=== PATIENT | female | born 1965 | race Caucasian/White ===

== ENCOUNTER 2020-07-17 19:09 | Emergency (ER) | payer BC ==
[2020-07-17 19:26] VITALS: BP 122/74; PULSE 104
--- NOTE | 2020-07-17 19:41 | EDM.PDOC ---
ED HPI GENERAL MEDICAL PROBLEM - General Chief Complaint: Respiratory Problem Stated Complaint: RUNNY NOSE, YELLOW DRAINAGE, COUGH Time Seen by Provider: 07/17/20 19:37 Source of Information: Reports: Patient, RN, RN Notes Reviewed History Limitations: Reports: No Limitations - History of Present Illness INITIAL COMMENTS - FREE TEXT/NARRATIVE: Patient presents to ER with complaint of sinus congestion, yellow/green drainage from the nose, cough, sore throat. Patient states symptoms began yesterday. Denies fever chills, nausea or vomiting, diarrhea, chest pains or shortness of breath. Patient states she does have breast cancer and is currently taking chemo. 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 Throat Pain Score (Numeric/FACES): 4 - Related Data Allergies Allergy/AdvReac Type Severity Reaction Status Date / Time Sulfa (Sulfonamide Allergy Unknown Diaphoresis Verified 07/17/20 19:26 Antibiotics) Home Meds: Home Meds ALPRAZolam [Alprazolam] 0.5 mg PO ASDIRECTED 07/17/20 [History] Ondansetron [Zofran] 8 mg PO ASDIRECTED PRN 07/17/20 [History] Prochlorperazine Maleate [Compazine] 10 mg PO ASDIRECTED PRN 07/17/20 [History] Venlafaxine HCl [Venlafaxine ER] 150 mg PO DAILY 07/17/20 [History] Past Medical History - Past Health History Medical/Surgical History: Denies Medical/Surgical History Social & Family History - Family History Family Medical History: No Pertinent Family History - Caffeine Use Caffeine Use: Reports: Coffee, Soda - Living Situation & Occupation Living situation: Reports: with Family Occupation: Employed ED ROS GENERAL - Review of Systems Review Of Systems: Comprehensive ROS is negative, except as noted in HPI. ED EXAM, GENERAL - Physical Exam Exam: See Below Exam Limited By: No Limitations General Appearance: Alert, WD/WN, No Apparent Distress Eye Exam: Bilateral Eye: EOMI, Normal Inspection Ears: Normal External Exam, Hearing Grossly Normal Nose: Normal Inspection Throat/Mouth: Normal Inspection, Normal Voice, No Airway Compromise, Other (mild erythema of oropharynx) Head: Atraumatic, Normocephalic Neck: Normal Inspection, Supple, Non-Tender, Full Range of Motion Respiratory/Chest: No Respiratory Distress, No Accessory Muscle Use, Chest Non- Tender, Decreased Breath Sounds Cardiovascular: Normal Peripheral Pulses, Regular Rate, Rhythm, No Edema, No Gallop, No JVD, No Murmur, No Rub Peripheral Pulses: 2+: Radial (L), Radial (R) GI/Abdominal: Normal Bowel Sounds, Soft, Non-Tender (Female) Exam: Deferred Rectal (Female) Exam: Deferred Back Exam: Normal Inspection, Full Range of Motion, NT Extremities: Normal Inspection, Normal Range of Motion, Non-Tender, Normal Capillary Refill, No Pedal Edema Neurological: Alert, Oriented, CN II-XII Intact, Normal Cognition, Normal Gait, Normal Reflexes, No Motor/Sensory Deficits Psychiatric: Normal Affect, Normal Mood Skin Exam: Warm, Dry, Intact, Normal Color, No Rash Lymphatic: No Adenopathy Course - Vital Signs Last Recorded V/S: Last Vital Signs Temp 97.8 F 07/17/20 19:18 Pulse 104 H 07/17/20 19:18 Resp 16 07/17/20 19:18 BP 122/74 07/17/20 19:18 Pulse Ox 100 07/17/20 19:18 - Orders/Labs/Meds Orders: Active Orders 24 hr Category Date Time Status CULTURE STREP A CONFIRMATION [] Stat Lab 07/17/20 19:40 Results STREP SCRN A RAPID W CULT CONF [] Stat Lab 07/17/20 19:40 Results Labs: Laboratory Tests 07/17/20 Range/Units 19:40 SARS CoV-2 RNA Rapid TREVON Negative (NEGATIVE) Departure - Departure Time of Disposition: 20:24 Disposition: Home, Self-Care 01 Condition: Good Clinical Impression: Upper respiratory infection Qualifiers: URI type: unspecified viral URI Qualified Code(s): J06.9 - Acute upper respiratory infection, unspecified - Discharge Information *PRESCRIPTION DRUG MONITORING PROGRAM REVIEWED*: No *COPY OF PRESCRIPTION DRUG MONITORING REPORT IN PATIENT RANDELL: No Instructions: Viral Respiratory Infection, [id number] Forms: ED Department Discharge Additional Instructions: Push fluids, water and gatorade/powerade May use Tylenol and/or Ibuprofen as directed for pain/fever Try to stay away from people, always wear a mask If you begin to have fever/chills/body aches, begin the antibiotics RX: Azithromycin Sepsis Event Note (ED) - Evaluation Sepsis Screening Result: No Definite Risk - Focused Exam Vital Signs: Vital Signs Temp Pulse Resp BP Pulse Ox 07/17/20 19:18 97.8 F 104 H 16 122/74 100 - My Orders Last 24 Hours: My Active Orders 07/17/20 19:40 CULTURE STREP A CONFIRMATION [RM] Stat STREP SCRN A RAPID W CULT CONF [] Stat - Assessment/Plan Last 24 Hours: My Active Orders 07/17/20 19:40 CULTURE STREP A CONFIRMATION [RM] Stat STREP SCRN A RAPID W CULT CONF [] Stat
== END 2020-07-17 20:30 | disposition home or self-care (01) ==
LOC: DL.ED 19:09
DX: J06.9 Acute upper respiratory infection, unspecified (principal); C50.919 Malignant neoplasm of unspecified site of unspecified female breast; Z20.828 Contact with and (suspected) exposure to other viral communicable diseases; Z88.2 Allergy status to sulfonamides
CPT/HCPCS: 87081; 87430; 99283; U0002

== ENCOUNTER 2020-10-29 22:41 | Emergency (ER) | payer BC ==
[2020-10-29 22:53] VITALS: BP 129/72; PULSE 100
--- NOTE | 2020-10-29 23:03 | EDM.PDOC ---
ED HPI GENERAL MEDICAL PROBLEM - General Chief Complaint: ENT Problem Stated Complaint: TROUBLE SWALLOWING SORE THROAT Time Seen by Provider: 10/29/20 22:50 Source of Information: Reports: Patient History Limitations: Reports: No Limitations - History of Present Illness INITIAL COMMENTS - FREE TEXT/NARRATIVE: This 55 yo female patient reports to the ED due to having a hard to swallowing. The patient reports her symptoms started yesterday. The patient reports increased difficulties swallowing solid foods, but liquids have been fine. The patient is currently under radiation treatment for breast cancer through Oncology in [facility] with her most recent radiation treatment being this morning. The patient denies any shortness of breath, chest pain, nausea/vomiting or diarrhea. Onset Date: 10/28/20 Duration: Constant, Getting Worse Location: Reports: Other Quality: Reports: Other Severity: Moderate Improves with: Reports: None Worsens with: Reports: None Context: Reports: Other Associated Symptoms: Reports: No Other Symptoms - Related Data Allergies Allergy/AdvReac Type Severity Reaction Status Date / Time Sulfa (Sulfonamide Allergy Unknown Diaphoresis Verified 10/29/20 22:55 Antibiotics) Home Meds: Home Meds ALPRAZolam [Alprazolam] 0.5 mg PO ASDIRECTED 07/17/20 [History] Ondansetron [Zofran] 8 mg PO ASDIRECTED PRN 07/17/20 [History] Prochlorperazine Maleate [Compazine] 10 mg PO ASDIRECTED PRN 07/17/20 [History] Venlafaxine HCl [Venlafaxine ER] 150 mg PO DAILY 07/17/20 [History] Gabapentin [Neurontin] 100 mg PO BID 10/29/20 [History] Past Medical History - Past Health History Medical/Surgical History: Denies Medical/Surgical History Respiratory History: Reports: Asthma 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 side. Social & Family History - Family History Family Medical History: No Pertinent Family History - Tobacco Use Tobacco Use Status *Q: Never Tobacco User Years of Tobacco use: 30 Packs/Tins Daily: 0.4 - Caffeine Use Caffeine Use: Reports: None - Recreational Drug Use Recreational Drug Use: No - Living Situation & Occupation Living situation: Reports: with Family Occupation: Employed ED ROS ENT - Review of Systems Review Of Systems: Comprehensive ROS is negative, except as noted in HPI. ED EXAM, ENT - Physical Exam Exam: See Below Exam Limited By: No Limitations General Appearance: Alert, WD/WN, Mild Distress Eye Exam: Bilateral Eye: EOMI, Normal Inspection, PERRL Ears: Normal External Exam, Normal Canal, Hearing Grossly Normal, Normal TMs Nose: Normal Inspection, Normal Mucousa, No Blood Mouth/Throat: Normal Inspection, Normal Gums, Normal Lips, Normal Oropharynx, Normal Teeth Head: Atraumatic, Normocephalic Neck: Normal Inspection, Supple, Non-Tender, Full Range of Motion Cardiovascular: Normal Peripheral Pulses, Regular Rate, Rhythm, No Edema, No Gallop, No JVD, No Murmur, No Rub GI/Abdominal: Normal Bowel Sounds, Soft, Non-Tender, No Organomegaly, No Distention, No Abnormal Bruit, No Mass (Female) Exam: Deferred Rectal (Female) Exam: Deferred Back: Normal Inspection, Full Range of Motion Extremities: Normal Inspection, Normal Range of Motion, Non-Tender, No Pedal Edema, Normal Capillary Refill Neurological: Alert, Oriented, CN II-XII Intact, Normal Cognition, Normal Gait, Normal Reflexes, No Motor/Sensory Deficits Psychiatric: Normal Affect, Normal Mood Skin: Warm, Dry, Intact, Normal Color, No Rash Lymphatic: No Adenopathy Course - Vital Signs Last Recorded V/S: Last Vital Signs Temp 35.7 C L 10/29/20 22:46 Pulse 100 10/29/20 22:46 Resp 19 10/29/20 22:46 BP 129/72 10/29/20 22:46 Pulse Ox 97 10/29/20 22:46 - Orders/Labs/Meds Orders: Active Orders 24 hr Category Date Time Status CULTURE STREP A CONFIRMATION [RM] Stat Lab 10/29/20 22:58 Results STREP SCRN A RAPID W CULT CONF [RM] Stat Lab 10/29/20 23:03 Ordered Departure - Departure Time of Disposition: 23:25 Disposition: Home, Self-Care 01 Condition: Fair Clinical Impression: Dysphagia Qualifiers: Dysphagia type: esophageal phase Qualified Code(s): R13.10 - Dysphagia, unsp ecified - Discharge Information *PRESCRIPTION DRUG MONITORING PROGRAM REVIEWED*: Not Applicable *COPY OF PRESCRIPTION DRUG MONITORING REPORT IN PATIENT RANDELL: Not Applicable Instructions: Dysphagia Eating Plan, Minced and Moist Foods Forms: ED Department Discharge Care Plan Goals: The patient was advised of the examination and lab results during the visit. The patient was encouraged to continue to drink plenty of liquids. The patient was also encouraged to chew all food well. The patient should follow-up with her primary care next week for further evaluation (swallow studies) and treatment. If the patient has any additional symptoms or concerns, the patient should either return to the emergency department or visit her primary care facility. Sepsis Event Note (ED) - Evaluation Sepsis Screening Result: No Definite Risk - Focused Exam Vital Signs: Vital Signs Temp Pulse Resp BP Pulse Ox 10/29/20 22:46 35.7 C L 100 19 129/72 97 - My Orders Last 24 Hours: My Active Orders 10/29/20 22:58 CULTURE STREP A CONFIRMATION [RM] Stat 10/29/20 23:03 STREP SCRN A RAPID W CULT CONF [RM] Stat - Assessment/Plan Last 24 Hours: My Active Orders 10/29/20 22:58 CULTURE STREP A CONFIRMATION [RM] Stat 10/29/20 23:03 STREP SCRN A RAPID W CULT CONF [RM] Stat
== END 2020-10-29 23:32 | disposition home or self-care (01) ==
LOC: DL.ED 22:41
DX: R13.10 Dysphagia, unspecified (principal); J45.909 Unspecified asthma, uncomplicated; Z72.0 Tobacco use; Z88.2 Allergy status to sulfonamides; Z79.899 Other long term (current) drug therapy
CPT/HCPCS: 87081; 87430; 99283; 99284

== ENCOUNTER 2023-12-14 20:12 | Emergency (ER) | payer OTHER ==
[2023-12-14 20:33] VITALS: BP 110/70
[2023-12-14] MEDS: Lidocaine 1% 5 ML VIAL INJECT ONE ×2 (20:44→21:37)
[2023-12-14] MEDS: Silver Nitrate Applicator Each TOP ONE (21:12)
[2023-12-14] MEDS: Silver Nitrate Applicator Each ONE (21:12)
[2023-12-14 21:33] VITALS: PULSE 90
== END 2023-12-14 21:19 | disposition home or self-care (01) ==
LOC: DL.ED 20:12
DX: L60.0 Ingrowing nail (principal); J45.909 Unspecified asthma, uncomplicated; Z86.16 Personal history of COVID-19; F17.210 Nicotine dependence, cigarettes, uncomplicated; Z79.899 Other long term (current) drug therapy; Z88.2 Allergy status to sulfonamides
CPT/HCPCS: 11750; 99283; 99283-25; J3490

== ENCOUNTER 2024-08-12 18:59 | Emergency (ER) | payer OTHER ==
[2024-08-12] MEDS: methylPREDNISolone Sodium Succinate 125 MG/2 ML SDV IM ONE (19:52)
[2024-08-12] MEDS: Albuterol/Ipratropium 3.0-0.5 MG/3 ML Neb Soln NEB ONE (19:52)
[2024-08-12 20:07] LABS: BASOPHILS PERCENT AUTO 0.4 % (0.0-1.0); EOSINOPHILS PERCENT AUTO 3.5 % (1.0-3.0); HEMATOCRIT 40.1 % (37.0-47.0); LYMPHOCYTES PERCENT AUTO 29.4 % (20.5-50.1); MEAN CORPUSCULAR HEMOGLOBIN 31.4 pg (27.0-34.0); MEAN CORPUSCULAR HGB CONC 32.4 g/dL (33.0-35.0); MEAN CORPUSCULAR VOLUME 96.9 fL (80-100); MONOCYTES PERCENT AUTO 7.1 % (2-8); NEUTROPHILS PERCENT AUTO 59.6 % (42.2-75.2); PLATELET COUNT,PLT 207 10^3/uL (150-450); RED BLOOD CELL COUNT 4.14 10^6/uL (4.2-5.4); WHITE BLOOD CELL COUNT,WBC 10.5 10^3/uL (5.0-10.0)
[2024-08-12 20:30] LABS: ALBUMIN 3.6 g/dL (3.4-5.0); ANION GAP 15.4 mEq/L (7-13); BILIRUBIN TOTAL 0.2 mg/dL (0.2-1.0); CALCIUM 9.5 mg/dL (8.5-10.1); CREATININE 0.92 mg/dL (0.55-1.02); EST CRCL DRUG DOSING (CG) 63.61 mL/min; POTASSIUM,K 3.4 mmol/L (3.5-5.1); PROTEIN TOTAL,TP 7.1 g/dL (6.4-8.2)
[2024-08-12] MEDS: Take Home: predniSONE 20 MG, 4 Tab Pack PO ONE (20:40)
[2024-08-12 21:13] VITALS: BP 130/68; PULSE 89
[2024-08-12] MEDS: Potassium Chloride 10 MEQ Tab.ER PO ONE (21:18)
== END 2024-08-12 21:32 | disposition home or self-care (01) ==
LOC: DL.ED 18:59
DX: J06.9 Acute upper respiratory infection, unspecified (principal); B97.89 Other viral agents as the cause of diseases classified elsewhere; J45.909 Unspecified asthma, uncomplicated; Z86.16 Personal history of COVID-19; F17.210 Nicotine dependence, cigarettes, uncomplicated; Z79.899 Other long term (current) drug therapy; Z88.2 Allergy status to sulfonamides
CPT/HCPCS: 71046; 80053; 83735; 85025; 87428; 96372; 99284; A9270; J2919; J7620-GY